=== PATIENT | male | born 1965 | race Caucasian/White ===

== ENCOUNTER → 2018-07-05 08:57 | Outpatient (POV) | payer MEDICARE, SELFPAY | PROVIDERS: Visit Provider Podiatrist | DX: Z00.00 Encounter for general adult medical examination without abnormal findings (principal) ==

== ENCOUNTER 2018-12-18 13:00 | Outpatient (RCR) | payer MEDICARE, MEDICAID, SELFPAY | END 2018-12-18 13:05 | disposition home or self-care (01) | LOC: ST 13:00 | DX: I63.89 Other cerebral infarction (principal); G83.21 Monoplegia of upper limb affecting right dominant side; I69.322 Dysarthria following cerebral infarction | CPT/HCPCS: 92507; 92523 ==

== ENCOUNTER 2018-12-18 14:00 | Outpatient (RCR) | payer MEDICARE, MEDICAID, SELFPAY | END 2018-12-18 14:05 | disposition home or self-care (01) | LOC: PT 14:00 | DX: I63.89 Other cerebral infarction (principal); G83.21 Monoplegia of upper limb affecting right dominant side; I69.322 Dysarthria following cerebral infarction | CPT/HCPCS: 97110; 97112; 97163; 97164 ==

== ENCOUNTER 2018-12-18 15:00 | Outpatient (RCR) | payer MEDICARE, MEDICAID, SELFPAY | END 2018-12-18 15:05 | disposition home or self-care (01) | LOC: OT 15:00 | DX: I63.89 Other cerebral infarction (principal); R47.1 Dysarthria and anarthria | CPT/HCPCS: 97110; 97140; 97164; 97166; 97168 ==

== ENCOUNTER → 2018-12-24 14:26 | Outpatient (CLI) | payer MEDICARE, MEDICAID, SELFPAY ==
[2018-12-24 15:00] VITALS: PULSE 68; PULSE 70
== END ==
PROVIDERS: PCP Emergency Medicine; Visit Provider Nurse Practitioner Family
DX: I10 Essential (primary) hypertension (principal); Z86.73 Personal history of transient ischemic attack (TIA), and cerebral infarction without residual deficits; R06.02 Shortness of breath
CPT/HCPCS: 94060; 94640

== ENCOUNTER → 2018-12-27 07:29 | Outpatient (CLI) | payer MEDICARE, MEDICAID, SELFPAY ==
--- NOTE | 2018-12-27 07:31 | CA_ITS ---
APPROVED REPORT Supervisor Records Change: FREDDY Study Quality: Good Indications: htn Risk Factors Hypertension Hyperlipidemia TIA/CVA History Smoking Renal Artery Doppler Origin (R) 174.0/39.0 cm/sec Proximal (R) 150.0/46.3 cm/sec Mid (R) 94.9/29.6 cm/sec Distal (R) 66.9/12.3 cm/sec Renal Aorta Ratio (R) 2.00 Segmental A. (R) 39.4/12.9 cm/sec RI: 0.67 Segmental A. Sup (R) 35.0/11.3 cm/sec Segmental A. Mid (R) 36.0/12.3 cm/sec Segmental A. Inf (R) 47.1/15.0 cm/sec Origin (L) 87.7/27.8 cm/sec Proximal (L) 113.0/28.0 cm/sec Mid (L) 132.0/38.1 cm/sec Distal (L) 53.9/14.5 cm/sec Renal Aorta Ratio (L) 1.50 Segmental A. (L) 40.3/13.2 cm/sec RI: 0.67 Segmental A. Sup (L) 39.4/10.6 cm/sec Segmental A. Mid (L) 39.4/12.7 cm/sec Segmental A. Inf (L) 42.1/16.4 cm/sec Renal Measurements Kidney Size (R) 10.8x6.8 cm Cortical Thickness (R) 1.6 cm Kidney Size (L) 12.3x7.2 cm Cortical Thickness (L) 1.6 cm Aortic Doppler Velocity Waveform Sup Masood Ao 88.0 cm/sec Findings Normal bilateral renal artery ultrasound. 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 Conclusion Normal bilateral renal artery ultrasound. 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 Electronically signed by : Sherwin Olivia MD 12/28/2018 14:58:32
== END ==
PROVIDERS: PCP Emergency Medicine; Visit Provider Urology
DX: I10 Essential (primary) hypertension (principal); Z86.73 Personal history of transient ischemic attack (TIA), and cerebral infarction without residual deficits
CPT/HCPCS: 93306; 93976

== ENCOUNTER 2019-04-03 14:00 | Outpatient (RCR) | payer MEDICARE, MEDICAID, SELFPAY ==
--- NOTE | 2019-01-09 14:16 | HMH.OTOPEV ---
OT Inpatient Evaluation Rehab OT Outpatient Eval Start: 01/09/19 13:41 Freq: Status: Active Protocol: Document 01/09/19 13:42 RMARSHALL (Rec: 01/09/19 14:16 [id number] Electronically Signed By Gloria Sanchez OT 01/09/19 13:42 Outpatient Therapy Subjective History Subjective History Pt is a 53 year old male who reports to therapy for evaluation to right UE strengthening, endurance, balance, and overall participation in ADL's. Pt had his first CVA in 2012 and made a full recovery. In June, pt had another stroke affecting the right side. and patient report his deficits were resolving and he was getting movement back in the arm. However, pt had another stroke in June 2018 resulting in significant impairments in RUE. After his stroke in June pt went to [facility] for 14 days before returning home. reports patient is able to don his shirt independently, but requires assistance with lower body dressing such as donning /doffing shoes, pants, socks, ect. Pt is not about to complete fine motor task with right hand; pt is left hand dominant. Pt also requires assistance with bathing. He uses a shower chair, but needs help with washing the left side of his body. Pt is independent with feeding himself and brushing his teeth . Right UE appears to have spasticity and significant weakness. Pt uses upper trap compensation when he tries to move the right shoulder. Pt is able to move the elbow WNL, but requires extended time and gravity assistance for extension. Pt is unable to make a full fist and is als
--- NOTE | 2019-02-20 15:14 | HMH.RHREAS ---
Rehab Reassessment Rehab OP Re-assessment Start: 02/20/19 14:59 Freq: Status: Active Protocol: Document 02/20/19 14:59 GISELLE (Rec: 02/20/19 15:13 GISELLE [id number]) Electronically Signed By Gloria Sanchez OT 02/20/19 14:59 Rehab Re-assessment Subjective Subjective I feel like I'm doing better. Objective Objective Notes Pt continues to be seen twice a week in order to address right sided deficits cause from stroke. Each time pt engages in neuro re-education activities, strengthening, balance, and manual therapy strategies. Modalities are provided such as [place] e- stim in order to stimulate the extensors of the wrist for improved motion. Assessment Progress Assessment Progressing as Expected Assessment Notes Pt is demonstrating improvement in right UE function at shoulder and elbow . Wrist has shown minimal improvement. ADL independence has also improved since inititial evaluation Patient goals met Short term goals have been met , except for wrist MMT Goals Not Met All wrist goals and jail goals written on initial evaluation Revised Goals Continue progressing towards all retirement goals written on initial evaluation. Plan Plan Continue with OT plan of care at this time. Frequency of Therapy 2x's a week Duration of therapy 4-6 more weeks Time and Billing Re-Eval Time 15 Re-Eval Billing Units 1 PHYSICIAN CERTIFICATION: I certify the specified therapy services for John Chin are required, authorized, and reviewed every 30 days.
== END 2019-04-03 14:05 | disposition home or self-care (01) ==
LOC: OT 14:00
PROVIDERS: PCP Emergency Medicine; Visit Provider Emergency Medicine
DX: I69.351 Hemiplegia and hemiparesis following cerebral infarction affecting right dominant side (principal); R53.1 Weakness
CPT/HCPCS: 97014; 97110; 97140; 97164; 97166; 97168; G0283

== ENCOUNTER 2019-04-03 14:00 | Outpatient (RCR) | payer MEDICARE, MEDICAID, SELFPAY ==
--- NOTE | 2019-01-09 14:59 | HMH.PTOPEV ---
PT Outpatient Evaluation Rehab PT Outpatient Evaluation Start: 01/09/19 14:39 Freq: Status: Active Protocol: Document 01/09/19 14:39 SOSA (Rec: 01/09/19 14:58 SOSA [id number]) Electronically Signed By Jonah Gerard, PT 01/09/19 14:39 Outpatient Therapy Subjective History Subjective History Pt presents s/p CVA in June, also reports CVA in Jun, and 6 yrs previous. Pt reports most recent CVA effected R side with severe R ankle DF deficit, and R knee weakness (inability to control TKE). Pt reports R knee brace helps prevent R knee HE, and R AFO prevents R foot drop. PMH: severe HTN Chief Complaint Paresthesia,Weakness,Decreased Coordination Symptoms Relieved By Rest/Positioning Symptoms Aggravated By Standing,Physical Activity, Walking,Lifting Prior Functional Limitations Housework,Standing,Walking, Stairs,Balance Current Functional Limitations Lifting,Housework,Standing, Walking,Stairs,Balance Symptom Description Constant and Continuous Hip/Knee Eval MMT left Hip Strength Reason Not Measured WFL Knee Strength Reason Not Measured WFL right Hip Flexion Strength Grade 4 Good Hip Abduction Strength Grade 4- Good- Hip Adduction Strength Grade 4- Good- Hip Extension Strength Grade 4- Good- Knee Extension Strength Grade 4 Good Knee Flexion Strength Grade 3+ Fair+ Ankle/Foot Eval MMT left Ankle Dorsiflexion Strength Grade 5 Normal Ankle Plantarflexion Strength Grade 5 Normal Foot Eversion Strength Grade 5 Normal Foot Inversion Strength Grade 5 Normal right Ankle Dorsiflexion Strength Grade 2- Poor- Balance Eval Timed Up and Go Test 1. Is the Timed Up and Go test result > yes or = to 12 seconds? Tinetti Sitting Balance Sitting Balance Steady, safe Arising from Chair Ability to Arise Able, w/o using arms Attempts to Arise Arises on 1st attempt Standing Balance Immediate Standing Balance Steady w/o support Standing Balance Steady, wide stance Nudged Response Staggers, catches self Standing with Eyes Closed Unsteady Turning Step Pattern Turning 360 Degrees Discontinuous steps Stability Turning 360 Degrees Unsteady, grabs/staggers Sitting Down Sitting Down Safe, steady Gait and Step Initiation of Gait Hesitancy, mult. attempts
--- NOTE | 2019-02-20 14:57 | HMH.RHREAS ---
Rehab Reassessment Rehab OP Re-assessment Start: 02/20/19 14:07 Freq: Status: Active Protocol: Document 02/20/19 14:53 LADYBETSY (Rec: 02/20/19 14:57 SOSA [id number]) Electronically Signed By Jonah Gerard, PT 02/20/19 14:53 Rehab Re-assessment Subjective Subjective PT REPORTS IMPROVED R DF STRENGTH AND STANDING/WALKING ENDURANCE SINCE I EVAL Objective Objective Notes TUSEC W/R KNEE BRACE AND AFO MMT: R DF 3/5, HIP FLX 4-4+/5, KNEE EXT 4+/5, KNEE FLX 4/5 TINETTI: 19 Assessment Progress Assessment Progressing as Expected Assessment Notes PT WITH IMPROVED STRENGTH, TUG SCORE, AND TINETTI SCORE Patient goals met STG'S 6 LTG'S 05/07 Goals Not Met STG'S 05/06, LTG'S 10/05 Plan Plan PT TO CONT W/SKILLED P.T. TO MAKE FURTHER IMPROVEMENTS IN STRENGTH, GAIT ENDURANCE AND BALANCE TO ALLOW FOR OPTIMAL FUNCTION Frequency of Therapy 2-3X/WK Duration of therapy 4-6WKS Time and Billing Re-Eval Time 15 Re-Eval Billing Units 1 PHYSICIAN CERTIFICATION: I certify the specified therapy services for John Chin are required, authorized, and reviewed every 30 days.
--- NOTE | 2019-03-27 15:43 | HMH.RHREAS ---
Rehab Reassessment Rehab OP Re-assessment Start: 02/20/19 14:07 Freq: Status: Active Protocol: Document 03/27/19 15:32 SOSA (Rec: 03/27/19 15:43 SOSA [id number]) Electronically Signed By Jonah Gerard, PT 03/27/19 15:32 Rehab Re-assessment Subjective Subjective PT REPORTS INCREASED WALKING AND STANDING ENDURANCE SINCE LAST REASSESS., AND FEELS 50% BETTER OVERALL SINCE I EVAL Objective Objective Notes TUSEC W/R KNEE BRACE AND AFO MMT: R DF 3/5, HIP FLX 4-4+/5, KNEE EXT 5/5, KNEE FLX 4-4+/5 TINETTI: 23 Assessment Progress Assessment Progressing as Expected Assessment Notes PT W/IMPROVED STRENGTH, TUG SCORE, AND TINETTI Patient goals met STG'S 6/6 LTG'S /7 Goals Not Met LTG'S 2/7 Plan Plan PT TO CONT W/SKILLED P.T. TO MAKE FURTHER IMPROVEMENTS IN STRENGTH, GAIT ENDURANCE AND BALANCE TO ALLOW FOR OPTIMAL FUNCTION Frequency of Therapy 2-3X/WK Duration of therapy 2-4 WKS Time and Billing Re-Eval Time 15 Re-Eval Billing Units 0 PHYSICIAN CERTIFICATION: I certify the specified therapy services for John Chin are required, authorized, and reviewed every 30 days.
== END 2019-04-03 14:05 | disposition home or self-care (01) ==
LOC: PT 14:00
PROVIDERS: PCP Emergency Medicine; Visit Provider Emergency Medicine
DX: Z86.73 Personal history of transient ischemic attack (TIA), and cerebral infarction without residual deficits (principal); R53.1 Weakness
CPT/HCPCS: 97014; 97110; 97112; 97140; 97163; 97164; G0283

== ENCOUNTER → 2020-06-03 18:46 | Outpatient (CLI) | payer MEDICARE, MEDICAID, SELFPAY ==
[2020-06-03 19:26] LABS: Basophils % 0.4 % (0.1-2.0); Eosinophils # 0.2 K/mm3 (0.0-0.4); Eosinophils % 2.4 % (0.1-12.0); Hematocrit 48.1 % (42.0-52.0); Hemoglobin 15.7 g/dL (14.1-18.0); Lymphocytes # 2.4 K/mm3 (0.7-4.5); Lymphocytes % 28.2 % (10-50); Mean Corpuscular HGB Conc 32.7 g/dL (31.8-35.4); Mean Corpuscular Hemoglobin 30.2 pg (27.0-31.2); Mean Corpuscular Volume 92.5 fl (80-94); Mean Platelet Volume 8.8 fl (7.4-10.4); Monocytes # 0.4 K/mm3 (0.1-1.0); Monocytes % 5.3 % (1.7-9.3); Neutrophils # 5.3 K/mm3 (1.8-7.8); Neutrophils % 63.7 % (37.0-80.0); Platelet Count 239 K/mm3 (142-424); Red Blood Count 5.21 M/mm3 (4.60-6.20); Red Cell Distribution Width 13.4 % (11.5-17.5); White Blood Count 8.4 K/mm3 (4.8-10.8)
[2020-06-03 19:41] LABS: Alanine Aminotransferase 63 U/L (12-78); Albumin Level 4.3 g/dl (3.5-5.0); Albumin/Globulin Ratio 1.3 (1.1-1.8); Alkaline Phosphatase 114 U/L (38-126); Aspartate Amino Transferase 52 U/L (17-59); Bilirubin,Total 0.3 mg/dl (0.2-1.3); Blood Urea Nitrogen 14 mg/dl (9-20); Calcium 9.8 mg/dl (8.4-10.2); Carbon Dioxide 25 mmol/L (22.0-30.0); Chloride 107 mmol/L (98-107); Chol/HDL Ratio 6.8 (1-3.5); Cholesterol 157 mg/dl (140-200); Estimated Glomerular Filt Rate 63 ml/min (>60); GFR (African American) 76 ML/MIN (>60); Globulin 3.4 g/dL (1.3-3.2); Glucose 129 mg/dl (74-100); HDL Cholesterol 23 mg/dl (40-60); Sodium 137 mmol/L (136-145); Total Protein,Serum 7.7 g/dl (6.3-8.2); Triglycerides 342 mg/dl (30-150); VLDL Cholesterol 68 mg/dL (0-40)
[2020-06-03 19:53] LABS: Direct LDL Cholesterol 83.43 mg/dL (100-129)
[2020-06-03 19:58] LABS: 25-OH Vitamin D, Total 19.1 ng/mL (30-100)
[2020-06-03 20:13] LABS: Thyroid Stimulating Hormone 0.65 uIU/mL (0.465-4.68)
[2020-06-05 17:56] LABS: PSA, Free 0.16 ng/mL; Prostate Specific Ag 0.4 ng/mL (0.0-4.0)
== END ==
PROVIDERS: Visit Provider Emergency Medicine
DX: R53.83 Other fatigue (principal); Z86.73 Personal history of transient ischemic attack (TIA), and cerebral infarction without residual deficits; F41.9 Anxiety disorder, unspecified; I10 Essential (primary) hypertension; E55.9 Vitamin D deficiency, unspecified
CPT/HCPCS: 80053; 80061; 82306; 84153; 84154; 84436; 84443; 85025

== ENCOUNTER 2020-12-16 20:29 | Emergency (ER) | payer MEDICARE, MEDICAID, SELFPAY ==
--- NOTE | 2020-12-16 20:21 | ECG_ITS ---
APPROVED REPORT Exam: Resting ECG HR:86 bpm ECG Measurements Heart Rate 86 AXES WA 164 P 41 QRSd 90 QRS 58 QT 392 T 61 QTc 469 Conclusion Normal sinus rhythm Normal ECG Electronically signed by : Nain Rowland MD 12/18/2020 12:06:05
[2020-12-16 20:22] VITALS: BP 132/99; PULSE 87; RESP 20; TEMP 36.7; O2SAT 90; BMI 25.8
[2020-12-16 20:30] VITALS: BP 132/99; PULSE 85; O2SAT 92
--- NOTE | 2020-12-16 20:33 | CT_ITS ---
PROCEDURE INFORMATION: Exam: CT Head Without Contrast Exam date and time: 12/16/2020 8:33 PM Age: 55 years old Clinical indication: Syncope and collapse; Patient HX: HX of stroke TECHNIQUE: Imaging protocol: Computed tomography of the head without contrast. 3D rendering (Not supervised by radiologist): MIP and/or 3D reconstructed images were created by the technologist. Radiation optimization: All CT scans at this facility use at least one of these dose optimization techniques: automated exposure control; mA and/or kV adjustment per patient size (includes targeted exams where dose is matched to clinical indication); or iterative reconstruction. COMPARISON: HEADWO CT head/brain wo con 07/18/2018 8:20 AM FINDINGS: Brain: Left frontal, occipital, temporal, and biparietal encephalomalacia is stable. Chronic cerebellar and lacunar infarctions within bilateral basal ganglia. White matter changes compatible with small vessel occlusive change. No mass. No hemorrhage. Cerebral ventricles: No ventriculomegaly. Paranasal sinuses: No fluid levels. Mastoid air cells: Visualized mastoid air cells are well aerated. Bones/joints: No acute fracture. Soft tissues: No significant soft tissue abnormality. IMPRESSION: Chronic changes without acute process.
--- NOTE | 2020-12-16 20:33 | XR_ITS ---
PROCEDURE INFORMATION: Exam: XR Chest Exam date and time: 12/16/2020 8:33 PM Age: 55 years old Clinical indication: Other: Hemoptysis; Additional info: Hemopytsis TECHNIQUE: Imaging protocol: XR of the chest. Views: 1 view. COMPARISON: CR CXR1VP XR chest portable 07/18/2018 9:02 AM FINDINGS: Lungs: Low lung volumes with interstitial coarsening but no confluent consolidation. Pleural spaces: No pneumothorax. Heart/Mediastinum: Soft tissue fullness within the ramon and mediastinum which is similar to prior examination. Bones/joints: No acute abnormality. IMPRESSION: 1. Soft tissue fullness within the ramon and mediastinum which is similar to prior examination. If this has not been previously evaluated, CT may be warranted for further evaluation. 2. Low lung volumes with interstitial coarsening but no confluent consolidation.
--- NOTE | 2020-12-16 20:33 | CT_ITS ---
PROCEDURE INFORMATION: Exam: CTA Chest With Contrast Exam date and time: 12/16/2020 8:33 PM Age: 55 years old Clinical indication: Other: Syncope TECHNIQUE: Imaging protocol: Computed tomographic angiography of the chest with contrast. 3D rendering (Not supervised by radiologist): MIP and/or 3D reconstructed images were created by the technologist. Radiation optimization: All CT scans at this facility use at least one of these dose optimization techniques: automated exposure control; mA and/or kV adjustment per patient size (includes targeted exams where dose is matched to clinical indication); or iterative reconstruction. Contrast material: ISO 370; Contrast volume: 70 ml; Contrast route: INTRAVENOUS (IV); COMPARISON: CR XR CHEST PORTABLE 12/16/2020 9:01 PM FINDINGS: Pulmonary arteries: The main and proximal lobar pulmonary arteries are within normal limits. Distal lobar and segmental branches are not well evaluated secondary to motion. Aorta: Calcified atherosclerosis. No aneurysm. Lungs: Emphysema with dependent ground-glass opacities more prominent on right. Pleural spaces: No pneumothorax. No pleural effusion. Heart: No cardiomegaly. No pericardial effusion. Lymph nodes: No enlarged lymph nodes. Spleen: There are multiple splenic calcifications likely on the basis of prior granulomatous exposure. Bones/joints: No acute fracture. Soft tissues: No significant swelling. Other findings: Examination is limited by motion. IMPRESSION: Emphysema with dependent ground-glass opacities more prominent on right which are not well evaluated secondary to motion and may be hypoventilatory however pneumonitis or asymmetric edema should be clinically excluded.
--- NOTE | 2020-12-16 20:35 | PC.NURSE ---
EMS reports pt was 89% on RA on scene. 2LNC was applied by EMS at that time.
[2020-12-16 20:47] LABS: Coronavirus 19, PCR Not Detected (NotDetected); Influenza A, PCR Not Detected (NotDetected); Influenza B, PCR Not Detected (NotDetected)
[2020-12-16 20:52] LABS: Basophils # 0.1 K/mm3 (0-0.2); Basophils % 0.8 % (0.1-2.0); Eosinophils # 0.1 K/mm3 (0.0-0.4); Eosinophils % 1.3 % (0.1-12.0); Hematocrit 49.8 % (42.0-52.0); Hemoglobin 16.7 g/dL (14.1-18.0); Lymphocytes # 3.1 K/mm3 (0.7-4.5); Lymphocytes % 30.7 % (10-50); Mean Corpuscular HGB Conc 33.5 g/dL (31.8-35.4); Mean Corpuscular Hemoglobin 29.8 pg (27.0-31.2); Mean Corpuscular Volume 88.8 fl (80-94); Mean Platelet Volume 9.2 fl (7.4-10.4); Monocytes # 0.4 K/mm3 (0.1-1.0); Monocytes % 3.6 % (1.7-9.3); Neutrophils # 6.4 K/mm3 (1.8-7.8); Neutrophils % 63.6 % (37.0-80.0); Platelet Count 305 K/mm3 (142-424); Red Blood Count 5.61 M/mm3 (4.60-6.20); Red Cell Distribution Width 13.6 % (11.5-17.5)
[2020-12-16 20:55] LABS: Alanine Aminotransferase 73 U/L (12-78); Albumin Level 4.1 g/dl (3.5-5.0); Alkaline Phosphatase 114 U/L (38-126); Anion Gap 15.4 mEq/L (5-15); Aspartate Amino Transferase 53 U/L (17-59); Bilirubin,Direct 0.5 mg/dl (0.0-0.4); Bilirubin,Total 0.5 mg/dl (0.2-1.3); Blood Urea Nitrogen 14 mg/dl (9-20); Calcium 9.1 mg/dl (8.4-10.2); Carbon Dioxide 25 mmol/L (22.0-30.0); Chloride 105 mmol/L (98-107); Creatinine Clearance Estimated 71 mL/min (50-200); Estimated Glomerular Filt Rate 57 ml/min (>60); GFR (African American) 69 ML/MIN (>60); Glucose 116 mg/dl (74-100); Potassium 3.4 mmoL/L (3.5-5.1); Sodium 142 mmol/L (136-145); Total Protein,Serum 7.7 g/dl (6.3-8.2)
[2020-12-16 20:59] LABS: Ethyl Alcohol < 10 mg/dl (0-10)
[2020-12-16 21:00] VITALS: BP 128/84; PULSE 88; RESP 23; O2SAT 93
[2020-12-16 21:01] LABS: C-Reactive Protein 82.9 mg/L (0-4)
--- NOTE | 2020-12-16 21:02 | HMH.EDSYNC ---
ED Disposition Clinical Impression: History of stroke Episode of syncope Qualifiers: Syncope type: unspecified Qualified Code(s): R55 - Syncope and collapse Disposition: Home, Self-Care Condition on Discharge: Good Instructions: DI for Syncope in Adults (Fainting) Additional Instructions: see pcp for follow up Referrals: Efra Ryan MD [Primary Care Provider] - - Critical Care Critical Care Time: No Attestation: On 12/16/20, the high probability of a clinically significant, sudden or life threatening deterioration of the following system(s) required my full and direct attention, intervention and personal management. The time I documented below is in addition to time spent performing reported procedures but includes the following listed in this critical care notation. Medical Decision Making - Medical Records Medical records reviewed: Yes: I reviewed the patient's medical records. - Jj Inquiry Pt receiving controlled substance: No Vital Signs: 12/16/20 20:22 12/16/20 20:30 12/16/20 21:00 Temperature 98.0 F Temperature Source Oral Pulse Rate 85 88 Pulse Rate [Left Radial] 87 Respiratory Rate 20 23 Blood Pressure 132/99 H 128/84 Blood Pressure [Right Arm] 132/99 H Blood Pressure Mean [Right Arm] 110 02 Sat by Pulse Oximetry 90 L 92 L 93 L Oxygen Delivery Method Room Air Room Air Room Air - Lab Data Lab results reviewed: Yes: I reviewed the patient's lab results. Lab Results 12/16/20 20:23: WBC 10.0, RBC 5.61, Hgb 16.7, Hct 49.8, MCV 88.8, MCH 29.8, MCHC 33.5, RDW 13.6, Plt Count 305, MPV 9.2, Neut % (Auto) 63.6, Lymph % (Auto) 30.7, Robertson % (Auto) 3.6, Eos % (Auto) 1.3, Baso % (Auto) 0.8, Neut # (Auto) 6.4, Lymph # (Auto) 3.1, Robertson # (Auto) 0.4, Eos # (Auto) 0.1, Baso # (Auto) 0.1, ESR 23 H 12/16/20 20:23: Sodium 142, Potassium 3.4 L, Chloride 105, Carbon Dioxide 25, Anion Gap 15.4 H, BUN 14, Creatinine 1.30 H, Estimated Creat Clear 71, Estimated GFR 57 L, Est GFR ( Amer) 69, Glucose 116 H, Calcium 9.1, Total Bilirubin 0.5, Direct Bilirubin 0.5 H, Conjugated Bilirubin 0.0, Indirect Bilirubin 0.0, Unconjugated Bilirubin 0.0, AST 53, ALT 73, Alkaline Phosphatase 114, Troponin I < 0.01, C-Reactive Protein 82.9 H, Total Protein 7.7, Albumin 4.1, Procalcitonin 0.124 12/16/20 20:23: Plasma/Serum Alcohol < 10 12/16/20 20:27: SARS-CoV-2 (PCR) Not detected, Influenza A Untype (PCR) Not detected, Influenza Type B (PCR) Not detected Result diagrams: 12/16/20 20:23 12/16/20 20:23 Orders (Tests/Meds): ED MEDICATIONS Discontinued Medications Generic Name Dose Route Start Last Admin Trade Name Freq PRN Reason Stop Dose Admin Iopamidol 70 ml 12/16/20 21:40 12/16/20 21:41 Iopamidol-370 (76%);100ml Bottle IV 12/16/20 21:41 70 ml ONCE ONE Administration Sodium Chloride 50 ml 12/16/20 21:40 12/16/20 21:41 0.9 % Sodium Chloride 50 Ml Vial IV 12/16/20 21:41 50 ml ONCE ONE Administration Sodium Chloride 10 ml 12/16/20 21:40 12/16/20 21:41 Sodium Chloride 0.9% 10ml Syr (Rad Only) IV 12/16/20 21:41 10 ml ONCE ONE Administration ORDERS Category Date Time Status Drug Screen,Urine Stat Lab 12/16/20 20:33 Ordered Troponin I Q3H Lab 12/16/20 23:45 Ordered Troponin I Q3H Lab 12/17/20 02:45 Ordered Urinalysis and Microscopic Stat Lab 12/16/20 20:33 Ordered - Radiology Data #1 Image(s): Chest Image Reviewed: Yes I reviewed the patient's radiology image, Yes I have reviewed radiologist's interpretation Preliminary Findings: Abnormal - CT Data CT Scan: Head, Chest Time Received: 23:[address] Reviewed: Yes: I have viewed the radiologist's interpretation Preliminary Findings: Abnormal (see report ) - ECG Data Tracing #1 Normal Sinus Rhythm: Yes Ischemic changes: non-specific ST-T wave changes - Reevaluation(s) Time: 23:04 Reevaluation #1: improved Medical Decision Narrative: syncope with no clear etiology pt d
[2020-12-16 21:14] LABS: Procalcitonin 0.124 ng/mL (0.0-2.0); Troponin I < 0.01 ng/ml (0.00-0.034)
[2020-12-16 21:19] LABS: Erythrocyte Sedimentation Rate 23 mm/hr (0-20)
[2020-12-16 22:00] VITALS: BP 151/90; PULSE 85; RESP 23; O2SAT 92
[2020-12-16 23:13] VITALS: BP 142/93; PULSE 85; RESP 23; TEMP 36.9; O2SAT 92
== END 2020-12-16 23:14 | disposition home or self-care (01) ==
PROVIDERS: Emergency Provider Emergency Medicine; PCP Emergency Medicine
DX: R55 Syncope and collapse (principal); Z86.73 Personal history of transient ischemic attack (TIA), and cerebral infarction without residual deficits; I10 Essential (primary) hypertension; K21.9 Gastro-esophageal reflux disease without esophagitis; F41.9 Anxiety disorder, unspecified; F17.210 Nicotine dependence, cigarettes, uncomplicated; Z79.899 Other long term (current) drug therapy; Z20.822 Contact with and (suspected) exposure to COVID-19
CPT/HCPCS: 70450; 71045; 71275; 80048; 80076; 84145; 84484; 85025; 85651; 86140; 93005; 99284; Q9967; U0003

== ENCOUNTER → 2021-08-30 07:00 | Outpatient (CLI) | payer MEDICARE, MEDICAID, SELFPAY ==
--- NOTE | 2021-08-30 07:01 | NM_ITS ---
APPROVED REPORT Exam: Nuclear Stress Test Indication: SOB, HTN, Tobacco use Patient Location: Outpatient Stress Tech: Kenisha Pastor [place] Tech:Elsa Reynolds, ARRT, RT (R)(N) Ht: 5 ft 10 in Wt: 193 lbs HR: 64 bpm BP: 135/73 mmHg BSA: 2.06 m2 BMI: 27.6 History: SOB, HTN, Tobacco use Procedure: Patient received a 0.4 mg of intravenous Lexiscan, resting heart rate 64 bpm, resting blood pressure 135/73 mmHg, with Lexiscan maximum heart rate achived was 87 bpm which is Less than 85 % of the maximum predicted heart rate and blood pressure was 140/90 mmHg. With Lexiscan, patient denied any complaint of chest pain. Electrocardiogram Resting electrocardiogram shows sinus rhythm, with Lexiscan there is less than 1.[address] segment depression noted from the baseline EKG. The EKG portion of the Lexiscan is nondiagnostic. Cardiac Stress and Resting SPECT Images: Cardiac Stress and Resting SPECT images were obtained using technetium 99m Myoview 31.9 mCi stress and 10.31 mCi at rest. Patient unable to due prone images due to history of stroke. Gated SPECT analysis of segmental wall motion and calculation of the ejection fraction also done. Cardiac stress and rest SPECT may show partial reversible defect involving the anterior apical and anteroseptal wall consistent with mixed ischemia and scar, computer derived ejection fraction is 61% which is overestimation by gated SPECT, visually estimated ejection fraction approximately 45% with moderate anterior apical and anteroseptal wall hypokinesis. There is transient ischemic dilatation of the left ventricle seen. Conclusion: 1. EKG portion of the Lexiscan is nondiagnostic. 2. Scintigraphic evidence of mixed ischemia and scar involving the anterior apical and anteroseptal wall, computer derived ejection fraction is 61% which is overestimation by gated SPECT, visually estimated ejection fraction is approximately 45% with segmental wall motion abnormality described above, there is transient ischemic dilatation of the left ventricle seen. 3. Abnormal Lexiscan Myoview study. Electronically signed by : Tarik Cardona MD 08/30/2021 15:30:24
--- NOTE | 2021-08-30 09:18 | HMH.ITSHM ---
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 []TRAZODONE OMEPRAZOLE LISINOPRIL LINACLOTIDE LEVETIRACETAM ASA FLUTICASONE VITAMIN D2 CLONAZEPAM CITALOPRAM VITAMIN D3 BISOPROLOL ATORVASTATIN AMLODIPINE ALBUTEROL
--- NOTE | 2021-08-30 09:35 | CA_ITS ---
APPROVED REPORT Exam: Pharmacologic Technologist: Kenisha Escobar, Ht: 5 ft 9 in Wt: 92 lbs BSA: 1.48 m2 HR: 64 bpm BP: 135/73 mmHg Medical History Medications: Amlodipine,,,,, Omeprazole,,,,, Aspirin,,,,, Trazadone,,,,, Atorvastatin,,,,, Citalopram,,,,, Albuterol,,,,, KloNOPIN,,,,, BisOPROLOL Fumarate,,,,, KEPPRA,,,,, LiNZESS,,,,, INCrUSE,,,,, Stress Test Details Test: LEXISCAN HR Resting HR: 64 bpm Max Heart Rate (APMHR): 163.928409 bpm Max HR Achieved: 87 bpm Target HR (85% APMHR): 138.873157 bpm % of APMHR: 53.37 Recovery HR: 80 bpm BP Resting BP: 135/73 mmHg Max BP: 140/90 mmHg Recovery BP: 140.0/90.0 mmHg ECG Resting ECG: NSR with NSSTW abnormalities Inferiorly Clinical Reason for Termination: Completed Protocol Exercise duration: 04:01 min Highest Stage Achieved: Stress ECG Conclusion Symptoms: None Arrhythmias/Ectopy: None ST-T Changes: <1.5mm ST Segment changes Conclusion: Non-Diagnostic Test Summary REST . . . . . . . Resting REST . . . . . . . Resting REST 04:22 . . 64 . 135/ 73 . . Stage 1 01:00 . . 74 . . . . Stage 2 01:00 . . 84 . 118/ 78 . . Stage 3 01:00 . . 85 . 126/ 87 . . Stage 4 01:00 . . 80 . 136/ 94 . . Stage 4 01:01 . . 81 . 136/ 94 . Stop exercise at 04:01 RECOVERY 01:00 . . 80 . . . . RECOVERY 02:00 . . 82 . . . . RECOVERY 02:17 . . 80 . 140/ 90 . . Electronically signed by : Tarik Cardona MD 08/30/2021 15:26:24
== END ==
PROVIDERS: PCP Emergency Medicine; Visit Provider Physician Assistant
DX: F17.200 Nicotine dependence, unspecified, uncomplicated; I10 Essential (primary) hypertension; I63.9 Cerebral infarction, unspecified; R06.00 Dyspnea, unspecified
CPT/HCPCS: 78452; 93017; A9502; J2785

== ENCOUNTER → 2021-09-01 07:52 | Outpatient (CLI) | payer MEDICARE, MEDICAID, SELFPAY ==
--- NOTE | 2021-09-01 07:53 | MR_ITS ---
FINAL REPORT CLINICAL HISTORY: CVA, HX STROKE 2019, NEW ONSET OF SEIZURE ACTIVITY IN JULY 2021. FINDINGS: Multiplanar MR imaging of the brain was performed without contrast. There is age-appropriate atrophy. There are foci of increased T2 signal in the cerebral white matter that have a nonspecific appearance but likely represent severe chronic ischemic/gliotic changes. There is left frontal and left parietal encephalomalacia consistent with prior infarcts. There is no evidence of intracranial hemorrhage or mass. No abnormal ventricular dilatation is identified. No abnormal extra-axial fluid collection is seen. No abnormality is seen on the diffusion weighted images. The posterior fossa and brainstem are unremarkable. Normal major vessel vascular flow voids are seen. IMPRESSION: Age-appropriate atrophy and severe chronic ischemic/gliotic changes. No acute intracranial abnormality. Reviewed, Interpreted and Dictated by Gage Rico III, MD Transcribed by Juventino Bowers Authenticated by Gage Rico III, MD on 09/01/2021 10:41:[address] [facility]
--- NOTE | 2021-09-01 09:17 | CA_ITS ---
FINAL REPORT TECHNIQUE: Color Doppler, duplex Doppler and sylvester scale sonography of the bilateral neck arterial vasculature was performed. Velocities were measured in the carotid arteries. Stenosis evaluation based on the validated velocity criteria. CLINICAL HISTORY: CVA, multiple CVA's, HTN, GERD, TIA, syncope FINDINGS: DUPLEX SCAN OF CAROTID ARTERIES SIXTO The peak systolic velocity of the right common carotid artery is 57 cm/s. The peak systolic velocity of the right internal carotid artery is 55 cm/s and end diastolic velocity 20 cm/s. The ICA/CCA ratio is 0.96. A mild amount of plaque is present. The right external carotid artery is patent. The right vertebral artery is patent with antegrade flow. The peak systolic velocity of the left common carotid artery is 70 cm/s. The peak systolic velocity of the left internal carotid artery is 78 cm/s and end diastolic velocity 34 cm/s. The ICA/CCA ratio is 1.12. A mild amount of plaque is present. The left external carotid artery is patent.The left vertebral artery is patent with antegrade flow. IMPRESSION: Less than 50% bilateral carotid stenosis. Bilateral patent vertebral arteries with antegrade flow. Reviewed, Interpreted and Dictated by Gage Rico III, MD Transcribed by Etta Ontiveros Authenticated by Gage Rico III, MD on 09/01/2021 01:16:14 PM [facility]
--- NOTE | 2021-09-01 09:17 | CA_ITS ---
APPROVED REPORT EXAM: Comprehensive 2D, Doppler, and color-flow Echocardiogram Electric Cell Tender: Maty Diaz CRT Ht: 5 ft 9 in Wt: 192lbs BSA: 2.03 BP: 116/79 mmHg Indications: COPD, Shortness of Breath, Obesity, Fatigue, Peripheral Edema, Hyperlipidemia, Hypertension/HDD, multiple CVA's, continues to smoke. Difficult disgruntlled, uncooperative pt. Bubble study Echo Enhancing Agent Indication: Rule out Shunt Agent(s) / Amount(s) Used: Agitated Saline 15 cc Comments: b/s appears negative 2D Dimensions LVOT 2.05 cm (M/F) 1.5-2.5 LA Volume 30.50 mL LA Volume Index 15.00 mL/m2 (M/F) 16-34 M-Mode Dimensions RVDd 2.71 cm (0.9-2.6) LA Diam 2.79 cm (1.9-4.0) LVDd 4.21 cm (3.5-5.7) Ao Diam 4.33 cm (2.0-3.7) LVDs 3.60 cm (3.5-5.7) IVSd 1.96 cm (0.6-1.1) PWd 1.00 cm (0.6-1.1) EF (Teich) 31.10% FS 14.50% EDV (Teich) 79.00 mL ESV (Teich) 54.40 mL LV Diastology E Decel Time 220.00 (160-240 msec) E/A Ratio 0.57 Aortic Valve AI PHT 580.00 ms AO Peak GR. 5.30 mmHg Mitral Valve MV E Max Victo Rm. 45.00 (40-130 cm/s) MV A Velocity 79.00 (40-130 cm/s) E/A Ratio 0.57 MV Decel. Time 220.00 (160-240 ms) MV PHT 64.00 ms Pulmonary Valve PV Peak Velocity 122.00 (50-150 cm/s) Tricuspid Valve TR P. Velocity 199.00 cm/s RAP Estimate 10.00 mmHg RVSP 25.80 mmHg Left Ventricle Left atrium is mildly enlarged, left ventricle is normal size, mild concentric left ventricular hypertrophy, estimated ejection fraction 55% with no regional wall motion abnormality, Doppler evidence of impaired LV relaxation seen. Right Ventricle Right atrium and right ventricle are mildly enlarged with normal contractility. Atria Intra-atrial septum is intact, there is no flow across the interatrial septum, agitated saline contrast study fails to identify intracardiac shunt. Aortic Valve Aortic valve is thickened and fibrosed there is no aortic stenosis, there is trace aortic insufficiency. Mitral Valve Mitral valve grossly normal, there is trace mitral regurgitation. Tricuspid Valve Tricuspid grossly normal, there is trace tricuspid regurgitation, tricuspid regurgitation jet velocity is inadequate for calculation of the right ventricular systolic pressure. Pulmonic Valve Pulmonic valve is poorly visualized. Great Vessels Aortic root is normal size. Inferior vena cava is poorly visualized. Pericardium No significant pericardial effusion noted. Conclusion 1. Mild biatrial enlargement, normal left ventricular size, mild concentric left ventricular hypertrophy, estimated ejection fraction 55% with no regional wall motion abnormality, Doppler evidence of impaired LV relaxation seen. 2. Mildly enlarged right ventricle with normal contractility. 3. Intra-atrial septum is intact, there is no intracardiac shunt. 4. Trace mitral and tricuspid regurgitation. 5. No significant pericardial effusion noted. 6. Inferior vena cava is poorly visualized. Electronically signed by : Tarik Cardona MD 09/01/2021 21:34:38
== END ==
PROVIDERS: PCP Emergency Medicine; Visit Provider Specialist
DX: G47.30 Sleep apnea, unspecified; I63.313 Cerebral infarction due to thrombosis of bilateral middle cerebral arteries; R55 Syncope and collapse
CPT/HCPCS: 70551; 93306; 93880

== ENCOUNTER → 2021-09-16 14:28 | Outpatient (CLI) | payer MEDICARE, MEDICAID, SELFPAY ==
[2021-09-16 15:58] LABS: Basophils # 0.1 K/mm3 (0-0.2); Basophils % 1.1 % (0.1-2.0); Eosinophils # 0.2 K/mm3 (0.0-0.4); Eosinophils % 2.6 % (0.1-12.0); Hematocrit 49.9 % (42.0-52.0); Lymphocytes # 2.2 K/mm3 (0.7-4.5); Lymphocytes % 30.9 % (10-50); Mean Corpuscular Hemoglobin 31.2 pg (27.0-31.2); Mean Corpuscular Volume 91.6 fl (80-94); Mean Platelet Volume 9.1 fl (7.4-10.4); Monocytes # 0.4 K/mm3 (0.1-1.0); Neutrophils # 4.3 K/mm3 (1.8-7.8); Neutrophils % 60.5 % (37.0-80.0); Platelet Count 234 K/mm3 (142-424); Red Blood Count 5.45 M/mm3 (4.60-6.20); Red Cell Distribution Width 13.6 % (11.5-17.5); White Blood Count 7.1 K/mm3 (4.8-10.8)
[2021-09-16 16:42] LABS: Anion Gap 12.5 mEq/L (5-15); Blood Urea Nitrogen 14 mg/dl (9-20); Calcium 9.7 mg/dl (8.4-10.2); Carbon Dioxide 27 mmol/L (22.0-30.0); Chloride 101 mmol/L (98-107); Estimated Glomerular Filt Rate 52 ml/min (>60); GFR (African American) 63 ML/MIN (>60); Glucose 109 mg/dl (74-100); Potassium 3.5 mmoL/L (3.5-5.1); Sodium 137 mmol/L (136-145)
== END ==
PROVIDERS: PCP Specialist; Visit Provider Internal Medicine
DX: R94.30 Abnormal result of cardiovascular function study, unspecified (principal); Z01.812 Encounter for preprocedural laboratory examination; Z11.52 Encounter for screening for COVID-19
CPT/HCPCS: 36415; 80048; 85025; C9803; U0003; U0005

== ENCOUNTER 2021-09-17 08:38 | Day surgery (SDC) | payer MEDICARE, MEDICAID, SELFPAY ==
[2021-09-17] VITALS (12 sets, daily range): BP systolic 85–135; BP diastolic 52–100; PULSE 62–70; RESP 18; TEMP 36.9; O2SAT 90–94; BMI 22.1
--- NOTE | 2021-09-17 | IR_ITS ---
APPROVED REPORT Patient Location: Outpatient Stage [facility] Painter Apprentice: AKIN Lai RT (R) PROCEDURES Left heart catheterization Left ventriculogram Selective coronary angiogram INDICATION High risk abnormal Myoview, Angina pectoris, Risk factors for coronary artery disease Informed consent was obtained prior to the procedure. COMPLICATIONS NONE Estimated Blood Loss: LESS THAN 10 ML TECHNIQUE One percent lidocaine used to anesthetize the right anterior aspect of the wrist. The right radial artery was accessed via the Seldinger technique. A 6 Jordanian sheath was placed in the right radial artery. 2.5 mg of verapamil, 800 mcg of nitroglycerin, 1mg Lidocaine and 5000 U Heparin were given through the arterial sheath. The papa catheter was also used to perform left heart catheterization, left ventriculogram and selective coronary angiogram. At the end of the procedure the sheath was removed good hemostasis was achieved using Traclet band, patient was transferred to the postop holding area in stable condition. ANGIOGRAPHIC RESULTS The left main artery Normal The left anterior descending artery Has proximal 10% luminal irregularities with a mid vessel 30% stenosis accompanying a small relatively short less than 15 mm myocardial bridge which compresses 40% during systole The circumflex artery Nondominant yet still large and normal The right coronary artery Dominant and has proximal tubular 50% stenosis followed by an additional tubular 50% stenosis. The stenoses are long extremely tortuous 120 degree bends. The FLANNERY ventriculogram reveals Preserved at 55 to 60% The left ventricular end-diastolic pressure 25 mmHg IMPRESSION Coronary artery disease as described above Initially the LAD had BENNETT II flow which improved to BENNETT-3 flow with subsequent contrast injections BENNETT II flow down the dominant right coronary artery Both the LAD and the right coronary artery flow is consistent with a combination of both endothelial dysfunction and diastolic dysfunction as evidenced by the elevated LVEDP Preserved ejection fraction PLAN 1. Avoidance of tobacco products 2. Treatment of endothelial dysfunction 3. For the time being I recommend medical management. The abnormal Myoview was in the anterior distribution not the inferior wall. Although the right coronary artery is borderline significant and could possibly benefit from stenting based on the angiographic stenosis I am in much greater favor of medical management. Stenting the proximal segment along the tortuous bends would likely require 2 or 3 38 mm stents to stent from the proximal portion throughout the mid and into the distal portion in order to completely straighten out the artery. Because these stenoses would require such complex and numerous stents I would like to try medical management first. Furthermore the abnormal Myoview distribution was in the LAD not the right coronary artery. Secondly patient has endothelial dysfunction which is likely contributing to his angina pectoris. Thirdly patient also has diastolic dysfunction which is contributing to the slow flow and the angina pectoris. 4. LDL less than 55 5. Treatment of both diastolic and endothelial dysfunction. If patient continues to experience angina pectoris after being adequately treated I would then consider bringing him back to the [facility] should his angina be recalcitrant to medical management and then consider stenting the right coronary artery. Electronically signed by : Bruce Boothe MD 09/17/2021 10:31:52
== END 2021-09-17 13:14 | disposition home or self-care (01) ==
LOC: CATHLAB 08:40
PROVIDERS: PCP Emergency Medicine; Visit Provider Internal Medicine
DX: I25.118 Atherosclerotic heart disease of native coronary artery with other forms of angina pectoris (principal); Z79.899 Other long term (current) drug therapy; I10 Essential (primary) hypertension; F17.210 Nicotine dependence, cigarettes, uncomplicated; I65.23 Occlusion and stenosis of bilateral carotid arteries; K21.9 Gastro-esophageal reflux disease without esophagitis; E78.5 Hyperlipidemia, unspecified; R94.39 Abnormal result of other cardiovascular function study
CPT/HCPCS: 93458; 99152; C1725; C1769; J1644; Q9966

== ENCOUNTER → 2021-10-13 20:09 | Outpatient (CLI) | payer MEDICARE, MEDICAID, SELFPAY | PROVIDERS: PCP Emergency Medicine; Visit Provider Specialist | DX: G47.33 Obstructive sleep apnea (adult) (pediatric) (principal); R09.02 Hypoxemia; I63.9 Cerebral infarction, unspecified | CPT/HCPCS: 95810 ==

== ENCOUNTER → 2021-10-28 11:44 | Outpatient (CLI) | payer MEDICARE, MEDICAID, SELFPAY ==
[2021-10-28 12:26] LABS: Basophils % 0.4 % (0.1-2.0); Eosinophils # 0.1 K/mm3 (0.0-0.4); Eosinophils % 2.1 % (0.1-12.0); Hematocrit 45.5 % (42.0-52.0); Lymphocytes # 1.6 K/mm3 (0.7-4.5); Lymphocytes % 24.1 % (10-50); Mean Corpuscular HGB Conc 35.2 g/dL (31.8-35.4); Mean Corpuscular Hemoglobin 30.2 pg (27.0-31.2); Mean Platelet Volume 8.3 fl (7.4-10.4); Monocytes # 0.3 K/mm3 (0.1-1.0); Monocytes % 5.3 % (1.7-9.3); Neutrophils # 4.4 K/mm3 (1.8-7.8); Neutrophils % 68.2 % (37.0-80.0); Platelet Count 222 K/mm3 (142-424); Red Blood Count 5.29 M/mm3 (4.60-6.20); Red Cell Distribution Width 12.5 % (11.5-17.5); White Blood Count 6.5 K/mm3 (4.8-10.8)
[2021-10-28 13:07] LABS: Anion Gap 12.5 mEq/L (5-15); Blood Urea Nitrogen 18 mg/dl (9-20); Calcium 9.7 mg/dl (8.4-10.2); Carbon Dioxide 29 mmol/L (22.0-30.0); Chloride 102 mmol/L (98-107); Estimated Glomerular Filt Rate 42 ml/min (>60); GFR (African American) 51 ML/MIN (>60); Glucose 110 mg/dl (74-100); Magnesium 1.4 mg/dl (1.6-2.3); Potassium 3.5 mmoL/L (3.5-5.1); Sodium 140 mmol/L (136-145)
== END ==
PROVIDERS: Nurse Practitioner; PCP Emergency Medicine; Visit Provider Specialist
DX: R55 Syncope and collapse (principal); I10 Essential (primary) hypertension
CPT/HCPCS: 36415; 80048; 82533; 83735; 85025

== ENCOUNTER → 2021-11-03 15:13 | Outpatient (CLI) | payer MEDICARE, MEDICAID, SELFPAY ==
[2021-11-03 16:06] LABS: Anion Gap 8.3 mEq/L (5-15); Blood Urea Nitrogen 11 mg/dl (9-20); Calcium 8.8 mg/dl (8.4-10.2); Carbon Dioxide 26 mmol/L (22.0-30.0); Chloride 105 mmol/L (98-107); Estimated Glomerular Filt Rate 69 ml/min (>60); GFR (African American) 83 ML/MIN (>60); Glucose 106 mg/dl (74-100); Potassium 3.3 mmoL/L (3.5-5.1); Sodium 136 mmol/L (136-145)
== END ==
PROVIDERS: PCP Emergency Medicine; Visit Provider Physician Assistant
DX: R06.00 Dyspnea, unspecified (principal)
CPT/HCPCS: 36415; 80048

== ENCOUNTER → 2022-09-06 11:39 | Outpatient (CLI) | payer MEDICARE, MEDICAID, SELFPAY ==
[2022-09-06 12:19] LABS: Basophils % 0.4 % (0.1-2.0); Eosinophils # 0.2 K/mm3 (0.0-0.4); Eosinophils % 2.8 % (0.1-12.0); Hematocrit 47.6 % (42.0-52.0); Hemoglobin 15.5 g/dL (14.1-18.0); Lymphocytes % 30.2 % (10-50); Mean Corpuscular HGB Conc 32.5 g/dL (31.8-35.4); Mean Corpuscular Hemoglobin 30.7 pg (27.0-31.2); Mean Corpuscular Volume 94.5 fl (80-94); Mean Platelet Volume 8.7 fl (7.4-10.4); Monocytes # 0.4 K/mm3 (0.1-1.0); Monocytes % 5.9 % (1.7-9.3); Neutrophils % 60.7 % (37.0-80.0); Platelet Count 206 K/mm3 (142-424); Red Blood Count 5.04 M/mm3 (4.60-6.20); Red Cell Distribution Width 14.2 % (11.5-17.5); White Blood Count 6.5 K/mm3 (4.8-10.8)
[2022-09-06 12:49] LABS: Alanine Aminotransferase 32 U/L (12-78); Albumin Level 3.4 g/dl (3.5-5.0); Alkaline Phosphatase 102 U/L (38-126); Anion Gap 13.7 mEq/L (5-15); Aspartate Amino Transferase 33 U/L (17-59); Bilirubin,Indirect 0.5 mg/dL (0.0-0.9); Bilirubin,Total 0.5 mg/dl (0.2-1.3); Bilirubin,Unconjugated 0.6 mg/dL (0.0-1.1); Blood Urea Nitrogen 10 mg/dl (9-20); Calcium 8.8 mg/dl (8.4-10.2); Carbon Dioxide 29 mmol/L (22.0-30.0); Chloride 101 mmol/L (98-107); Chol/HDL Ratio 4.3 (1-3.5); Cholesterol 147 mg/dl (140-200); Estimated Glomerular Filt Rate 62 ml/min (>60); GFR (African American) 75 ML/MIN (>60); Glucose 116 mg/dl (74-100); HDL Cholesterol 34 mg/dl (40-60); Magnesium 1.8 mg/dl (1.6-2.3); Potassium 3.7 mmoL/L (3.5-5.1); Sodium 140 mmol/L (136-145); Total Protein,Serum 6.5 g/dl (6.3-8.2); Triglycerides 133 mg/dl (30-150); VLDL Cholesterol 27 mg/dL (0-40)
[2022-09-06 12:59] LABS: Direct LDL Cholesterol 91.55 mg/dL (100-129)
[2022-09-06 13:05] LABS: Free T4 (Free Thyroxine) 0.93 ng/dl (0.78-2.19)
[2022-09-06 13:19] LABS: Thyroid Stimulating Hormone 0.71 uIU/mL (0.465-4.68)
== END ==
PROVIDERS: PCP Emergency Medicine; Visit Provider Nurse Practitioner
DX: E78.5 Hyperlipidemia, unspecified (principal); I10 Essential (primary) hypertension; I25.10 Atherosclerotic heart disease of native coronary artery without angina pectoris; I51.89 Other ill-defined heart diseases; Z72.0 Tobacco use; Z86.73 Personal history of transient ischemic attack (TIA), and cerebral infarction without residual deficits
CPT/HCPCS: 36415; 80048; 80061; 80076; 83735; 84439; 84443; 85025

== ENCOUNTER 2023-05-11 18:56 | Outpatient (CLI) | payer MEDICARE, MEDICAID, SELFPAY ==
[2023-05-11 21:50] LABS: Amphetamine/Metha Screen,Urine Negative ng/ml (<1000); Barbiturates Screen,Urine Negative ng/ml (<200); Benzodiazepines Screen,Urine Negative ng/ml (<200); Cannabinoid Screen,Urine Negative ng/ml (<50); Cocaine Screen,Urine Negative ng/ml (<300); Methadone Screen,Urine Negative ng/ml (<300); Opiate Screen,Urine Negative ng/ml (<300); Phencyclidine Screen,Urine Negative ng/ml (<25)
== END 2023-05-11 23:59 ==
LOC: LAB.DROPOF 18:58
PROVIDERS: PCP Nurse Practitioner Family; Visit Provider Nurse Practitioner Family
DX: Z79.899 Other long term (current) drug therapy (principal)
CPT/HCPCS: 80307

== ENCOUNTER 2023-08-19 08:11 | Emergency (ER) | payer MEDICARE, MEDICAID, SELFPAY ==
[2023-08-19 08:20] VITALS: BP 137/90; PULSE 76; RESP 18; TEMP 36.6; O2SAT 96; BMI 25.8
--- NOTE | 2023-08-19 08:43 | EXP.UTC ---
Discharge Plan Disposition Patient Disposition: Home, Self-Care Condition: Good Prescriptions Prescriptions: New ondansetron 4 mg Tablet,Disintegrating 4 mg PO Q8H PRN (Reason: Nausea) Qty: 12 0RF No Action atorvastatin 80 mg tablet 80 mg PO DAILY Qty: 90 3RF amlodipine 10 mg tablet 10 mg PO DAILY Qty: 90 3RF isosorbide mononitrate 30 mg tablet extended release 24 hr 30 mg PO DAILY Qty: 90 3RF omeprazole 20 mg capsule,delayed release(DR/EC) See Rx Instructions .ROUTE .COMPLEX Qty: 90 3RF Dose Instruction: TAKE 1 CAPSULE BY MOUTH EVERY DAY FOR GERD Rx Instructions: TAKE 1 CAPSULE BY MOUTH EVERY DAY FOR GERD Linzess 72 mcg capsule See Rx Instructions .ROUTE .COMPLEX Qty: 90 0RF Dose Instruction: TAKE 1 CAPSULE BY MOUTH EVERY DAY Rx Instructions: TAKE 1 CAPSULE BY MOUTH EVERY DAY fluticasone furoate-vilanterol [Breo Ellipta] 100-25 mcg/dose blister with device See Rx Instructions .ROUTE .COMPLEX Qty: 60 2RF Dose Instruction: INHALE 1 DOSE BY MOUTH ONCE DAILY Rx Instructions: INHALE 1 DOSE BY MOUTH ONCE DAILY citalopram 20 mg tablet See Rx Instructions .ROUTE .COMPLEX Qty: 90 0RF Dose Instruction: TAKE ONE TABLET BY MOUTH EVERY DAY Rx Instructions: TAKE ONE TABLET BY MOUTH EVERY DAY aspirin 81 mg tablet,delayed release (DR/EC) See Rx Instructions .ROUTE .COMPLEX Qty: 90 0RF Dose Instruction: TAKE ONE TABLET BY MOUTH EVERY DAY WITH FOOD FOR BLOOD THINNER Rx Instructions: TAKE ONE TABLET BY MOUTH EVERY DAY WITH FOOD FOR BLOOD THINNER levetiracetam 500 mg tablet See Rx Instructions .ROUTE .COMPLEX Qty: 180 0RF Dose Instruction: TAKE 1 TABLET BY MOUTH TWICE DAILY Rx Instructions: TAKE 1 TABLET BY MOUTH TWICE DAILY ergocalciferol (vitamin D2) [Vitamin D2] 1,250 mcg (50,000 unit) capsule See Rx Instructions .ROUTE .COMPLEX Qty: 5 0RF Dose Instruction: TAKE 1 CAPSULE BY MOUTH ONCE A WEEK DIRECTED Rx Instructions: TAKE 1 CAPSULE BY MOUTH ONCE A WEEK DIRECTED Incruse Ellipta 62.5 mcg/actuation blister with device See Rx Instructions .ROUTE .COMPLEX Qty: 30 0RF Dose Instruction: USE 1 INHALATION BY MOUTH ONCE DAILY Rx Instructions: USE 1 INHALATION BY MOUTH ONCE DAILY clonazepam 0.5 mg tablet 0.5 mg PO BID 30 Days Qty: 60 4RF trazodone 100 mg tablet See Rx Instructions .ROUTE .COMPLEX Qty: 90 2RF Dose Instruction: TAKE ONE TABLET BY MOUTH AT BEDTIME Rx Instructions: TAKE ONE TABLET BY MOUTH AT BEDTIME albuterol sulfate 8.5 GM HFA aerosol inhaler See Rx Instructions .Route .COMPLEX Rx Instructions: INHALE 2 PUFFS BY MOUTH EVERY 4 TO 6 HOURS NEEDED FOR SHORTNESS OF BREATH OR WHEEZING Referrals Follow up/Referrals: Se Casas APRN [Primary Care Provider] - See instructions Activity Restrictions/Add. Instructions Additional Instructions/Restrictions: Drink plenty of fluids. Take tylenol for pain or fever. Take the zofran as directed if you have nausea/vomiting Follow up with your regular doctor. GO TO THE ER FOR ANY WORSENING SYMPTOMS Clinical Impressions Clinical Impression: Mild dehydration Instructions Patient Instructions: DI for Dehydration -- Adult Discharge ED Provider: Joel Hughes [facility] General Stated complaint: weak, diarrhea Mode of Arrival: Ambulatory Source of Information: Patient Limitations: No Limitations Time Seen by Provider: 08/19/23 08:43 Description of Symptoms (Recalled from Triage Doc. by RN): Pt has had a virus since last monday and stated he feels weak. HEENT Symptoms (Recalled from RN notes): Yes Resp Symptoms (Recalled from RN notes): No Skin Symptoms (Recalled from RN notes): No MS Symptoms (Recalled from RN notes): No Functional Status (Recalled from RN notes): n/a History of Present Illness Provider Complaint: He states that around 5 days ago he had around 24 hours of diarrhea and vomiting. Those symptoms have completely resolved. His physical therapist was at his house yesterday and he recommended that the patient come in to be checked for dehydration. The patient denies any complaints at this time. Related Data Home Medications Medication Instructions Recorded Confirmed albuterol sulfate 90 mcg/actuation See Rx Instructions .Route 09/17/21 08/19/23 aerosol inhaler .COMPLEX . Previous Rx's Medication Instructions Recorded amlodipine 10 mg tablet 10 mg PO DAILY #90 tabs 10/04/22 atorvastatin 80 mg tablet 80 mg PO DAILY #90 ea 10/04/22 isosorbide mononitrate 30 mg 30 mg PO DAILY #90 tabs 10/04/22 tablet,extended release 24 hr omeprazole 20 mg capsule,delayed See Rx Instructions .Route 10/04/22 release .COMPLEX #90 caps linaclotide 72 mcg capsule See Rx Instructions .Route 10/17/22 (Linzess) .COMPLEX #90 caps fluticasone furoate 100 See Rx Instructions .Route 01/04/23 mcg-vilanterol 25 mcg/dose .COMPLEX #60 ea inhalation powder (Breo Ellipta) aspirin 81 mg tablet,delayed See Rx Instructions .Route 07/31/23 release .COMPLEX #90 tabs citalopram 20 mg tablet See Rx Instructions .Route 07/31/23 .COMPLEX #90 tabs ergocalciferol (vitamin D2) 1,250 See Rx Instructions .Route 07/31/23 mcg (50,000 unit) capsule (Vitamin .COMPLEX #5 caps D2) levetiracetam 500 mg tablet See Rx Instructions .Route 07/31/23 .COMPLEX #180 tabs umeclidinium 62.5 mcg/actuation See Rx Instructions .Route 07/31/23 blister powder for inhalation .COMPLEX #30 ea (Incruse Ellipta) clonazepam 0.5 mg tablet 0.5 mg PO BID 30 days #60 tabs 08/01/23 trazodone 100 mg tablet See Rx Instructions .Route 08/01/23 .COMPLEX #90 tabs ondansetron 4 mg disintegrating 4 mg PO Q8H PRN Nausea #12 tabs 08/19/23 tablet Allergies Allergy/AdvReac Type Severity Reaction Status Date / Time No Known Allergies Allergy Verified 08/19/23 08:29 Worker's Comp Is this a Worker's Comp case?: No [facility] Disclaimer: The information contained in this section may have been updated after the patient was seen, as this information can be updated by other users. Medical History Diastolic dysfunction HLD (hyperlipidemia) Dyspnea History of stroke Essential hypertension Stroke Social History Smoking Status: Current every day smoker tobacco type: cigarettes packs per day: 2 second hand exposure: No alcohol intake: never substance use type: denies use current occupational status: unemployed Travel in the last 8 weeks: None household members: spouse housing: house current occupational exposures/hazards: No ROS Obtained: Yes All systems reviewed & no additional complaints except as documented Constitutional Constitutional: Denies chills and Denies fever(s) Eyes Eyes: Denies eye discharge ENT Ears, Nose, Mouth, and Throat: Denies dizziness, Denies otalgia and Denies sore throat Cardiovascular Cardiovascular: Denies chest pain Respiratory Respiratory: Denies shortness of breath, Denies chest congestion, Denies cough, Denies stridor and Denies wheezing Gastrointestinal Gastrointestingal: Denies nausea or vomiting Musculoskeletal Musculoskeletal: Reports system reviewed and no additional complaints, except as documented and Denies arthralgias Integumentary/Breasts Skin/Breast: Denies rash Neurologic Neurologic: Denies dizziness and Denies paresthesias Allergic/Immunologic Allergic/Immunologic: Denies wheezing Physical Exam General General appearance: alert and in no apparent distress Head Head exam: atraumatic, normocephalic and normal inspection Eye Eye exam: Present normal appearance, PERRL and EOMI ENT ENT exam: Present mucous membranes moist and normal external ear exam Expanded ENT Exam TM/Canal exam: Bilateral TM: erythema and bulging Nose exam: Absent sinus tenderness Mouth exam: Present normal external inspection; Absent drooling Teeth exam: Present normal inspection Throat exam: Present tonsillar erythema, tonsillomegaly and tonsillar exudate Neck Neck exam: Present normal inspection, full ROM and trachea midline; Absent tenderness, meningismus or lymphadenopathy Chest Chest inspection: Present normal inspection and symmetric chest wall rise; Absent tenderness Respiratory Respiratory exam: Present normal lung sounds bilaterally; Absent respiratory distress, wheezes or stridor Cardiovascular Cardiovascular exam: Present regular rate and normal rhythm; Absent systolic murmur or diastolic murmur Abdominal Exam Abdominal exam: Present soft and normal bowel sounds; Absent distention, tenderness, guarding, rebound or rigidity Extremities Exam Extremities exam: Present normal inspection and normal capillary refill; Absent calf tenderness Back Exam Back exam: Present normal inspection and full ROM; Absent tenderness, CVA tenderness (R) or CVA tenderness (L) Neurological Exam Neurological exam: Present alert, oriented X3 and CN II-XII intact Psychiatric Psychiatric exam: Present normal affect and normal mood Skin Skin exam: Present warm, dry, intact and normal color Medical Decision Making Medical Records Medical records reviewed: No I reviewed the patient's medical records. Jj Inquiry Pt receiving controlled substance: No Vital Signs: 08/19/23 08:20 Temperature 97.9 F Temperature Source Oral Pulse Rate [Right Radial] 76 Respiratory Rate 18 Blood Pressure [Right Arm] 137/90 Blood Pressure Mean [Right Arm] 105 Blood Pressure Source [Right Arm] Automatic Cuff Blood Pressure Position [Right Arm] Sitting 02 Sat by Pulse Oximetry 96 Oxygen Delivery Method Room Air
[2023-08-19 08:54] VITALS: BP 124/77; BP 131/77; PULSE 80; PULSE 89
[2023-08-19 09:02] VITALS: BP 137/90; PULSE 76; RESP 18; TEMP 36.6; O2SAT 96
--- NOTE | 2023-08-19 09:02 | PC.NURSE ---
Gave pt gatorade and check to see if they needed anything.
== END 2023-08-19 09:02 | disposition home or self-care (01) ==
PROVIDERS: Emergency Provider Nurse Practitioner Family; PCP Nurse Practitioner Family
DX: E86.0 Dehydration (principal); R19.7 Diarrhea, unspecified; R53.1 Weakness; F17.210 Nicotine dependence, cigarettes, uncomplicated; I10 Essential (primary) hypertension; E78.5 Hyperlipidemia, unspecified
CPT/HCPCS: 99204; 99212; G0463

== ENCOUNTER 2023-10-30 14:00 | Outpatient (RCR) | payer MEDICARE, MEDICAID, SELFPAY ==
--- NOTE | 2023-10-04 10:39 | HMH.PTOPEV ---
PT Outpatient Evaluation Rehab PT Outpatient Evaluation Start: 10/04/23 10:22 Freq: Status: Active Protocol: Document 10/04/23 10:22 SOSA (Rec: 10/04/23 10:38 SOSA Laptop) E-signed By Jonah Gerard, PT Outpatient Therapy Subjective History Subjective History Pt and pt caregiver report ' mini stroke' ~6 weeks ago, and 'major stroke 7 years ago that caused all this weakness on the right side.' Pt reports right ankle and foot provide the greatest limitation for walking and standing, reports no pain in the LE's, and reports no recent falls. Pt's caregiver reports physicians are unsure of the cause of ' all the strokes'. Pt reports he's been participating in HHPT as recently as 2 weeks ago, 'but they thought I needed to come here to do more stuff.' New diagnosis of cancer in past 12 No months? Chief Complaint Paresthesia,Weakness,Decreased Coordination Symptom Type Other Symptoms Relieved By Activity Symptoms Aggravated By Standing,Walking Prior Functional Limitations Housework,Standing,Walking, Stairs,Balance Current Functional Limitations Housework,Standing,Walking, Stairs,Balance Hip/Knee Eval Gait Observation General Gait Pattern Observation Ataxic Gait,Decrease Weight Bear (R),Decrease Stride Lngth (R) Assistive Device Assistive Devices Straight Cane MMT left Hip Flexion Strength Grade 5 Normal Hip Abduction Strength Grade 5 Normal Hip Adduction Strength Grade 5 Normal Hip Extension Strength Grade 5 Normal Knee Extension Strength Grade 5 Normal Knee Flexion Strength Grade 5 Normal right Hip Flexion Strength Grade 4- Good- Hip Abduction Strength Grade 4- Good- Hip Adduction Strength Grade 4 Good Hip Extension Strength Grade 4- Good- Knee Extension Strength Grade 4 Good Knee Flexion Strength Grade 4- Good- Ankle/Foot Eval ROM Ankle/Foot Dorsiflexion w/Knee Extended +19 Active Range Motion (degrees) Ankle/Foot Dorsiflexion w/Knee Extended +3 Passive Range (degrees) Ankle/Foot ROM Limitations Soft Tissue Tightness,Muscle Tone MMT Ankle Dorsiflexion Strength Grade 1 Trace Balance Eval Timed Up and Go Test 1. Is the Timed Up and Go test result > yes or = to 12 seconds? Tinetti Sitting Balance Sitting Balance Steady, safe Arising from Chair Ability to Arise Able, uses arms to help Attempts to Arise Arises on 1st attempt Standing Balance Immediate Standing Balance Steady with support Standing Balance Steady, wide stance Nudged Response Begins to fall Standing with Eyes Closed Unsteady Turning Step Pattern Turning 360 Degrees Discontinuous steps Stability Turning 360 Degrees Unsteady, grabs/staggers Sitting Down Sitting Down Uses arms or unsteady Gait and Step Initiation of Gait No hesitancy Right Foot Step Length Does pass stance foot Right Foot Step Height Does not clear floor Left Foot Step Length Does pass stance foot Left Foot Step Height Completely clears floor Step Description Step Symmetry Step length not equal Step Continuity Steps appear continuous Gait Description Path Description Mild/moderate deviation Trunk Description No sway but posturing Walking Stance Heels apart Scoring and Interpretation Tinetti Composite Score (points) 14 Outpatient Therapy Assessment Impairments Problems/Impairmments Impaired Range of Motion, Impaired Strength,Impaired Gait Pattern,Impaired Walking, Impaired Standing,Impaired Household Care,Impaired Stair Climbing,Impaired Balance, Impaired Tinnetti Score, Impaired TUG Time,Impaired Self Care/Self Management Prognosis Rehab Potential Fair Clinical Impression Consistent with Diagnosis Yes Short Term Goals Number of Weeks 4 Increase Range of Motion Yes: right AROM DF +5, PROM 0- 5 Increase Strength Yes: R ANKLE 3/5, R KNEE,HIP 4 /5 Increase Ability to Walk Yes: 10MIN Increase Ability to Stand Yes: 10MIN Improve Ability For Household Care Yes: 10MIN Increase Tinnetti Score Yes: 19-21 Decrease TUG Time Yes: 16-18 SEC W/SC Patient to be Ind w/ HEP Yes Mcfp Goals Number of Weeks 10-12 Increase Range of Motion Yes: RIGHT DF AROM 0, R DF PROM 0-10-15 Increase Strength Yes: RIGHT ANKLE 3+-4/5, R KNEE, HIP 4+-5/5 Improve Gait Pattern with Assistive Yes: WFL W/SC AND KAFO Device Increase Ability to Walk Yes: 15MIN Increase Ability to Stand Yes: 15MIN Improve Ability For Household Care Yes: 15MIN Improve Ability to Climb Stairs Yes: WFL W/HHAX1-2 Increase Tinnetti Score Yes: 24-26 Decrease TUG Time Yes: 12-14 SEC W/SC Patient to be Ind w/ Advanced HEP Yes Outpatient Therapy Plan of Care Treatment Plan May Include Therapeutic Exercise Including Home Yes Exercise Program Manual Therapy Techniques Yes Neuromuscular Re-education Yes Therapeutic Activities to Return to Yes Previous Functional/Work Level Gait Training Yes ADL/Self Care Education Yes Thermal Modalities Yes Electrical Stimulation Yes Ultrasound/Phonophoresis Yes Orthotics/Bracing/Splinting Yes Eval/Re-Eval Yes Frequency Times per week 2-3 Duration Number of Weeks 10-12 Addendums This patient is a candidate for social No or vocational rehab? Patient/Guardian verbally acknowledges Yes understanding of treatment program and consents to further treatment? Patient/Guardian verbally acknowledges Yes understanding of diagnosis, prognosis and goals for treatment? Eval Complexity PT Charges 56233 - High Complexity Shoulder/Elbow Eval Shoulder Objective Measurements Elbow Objective Measurements PHYSICIAN CERTIFICATION: I certify the specified therapy services for John Олег Chin are required, authorized, and reviewed every 30 days.
== END 2023-10-30 15:20 | disposition home or self-care (01) ==
LOC: PT 14:00
PROVIDERS: Visit Provider Nurse Practitioner Family
DX: I63.89 Other cerebral infarction (principal)
CPT/HCPCS: 97163; 97530

== ENCOUNTER 2023-10-30 15:00 | Outpatient (RCR) | payer MEDICARE, MEDICAID, SELFPAY ==
--- NOTE | 2023-10-04 11:27 | HMH.OTOPEV ---
OT Inpatient Evaluation Rehab OT Outpatient Eval Start: 10/04/23 10:51 Freq: Status: Active Protocol: Document 10/04/23 10:51 RMARSHALRm (Rec: 10/04/23 11:26 [facility] [id number] E-signed By Gloria Dowling, OT Outpatient Therapy Subjective History Subjective History Pt is a 58 year old male who reports to therapy for initial evaluation due to a history of strokes. Pt originally had his first stroke ~7 years ago resulting in R side deficits in both upper and lower extremity. Since this stroke he has had multiple TIAs (10+) . His most recent TIA was ~6 weeks ago. Pt's RUE remains significantly limited due to hemiplegia. Pt usually has his right UE in resting position in lap or at his side with shoulder internally rotated and elbow flexors shortened which has led to a loss of motion and contractures. Pt's hand is contracted into a fist and wrist is also contracted into extension. Therapist does not feel subluxation at right shoulder humeral head. Pt has significant spasticity when pt attempts to activity move the arm and at rest. Pt demonstrates with a flexor synergy pattern when he attempts to move right shoulder resulting in the following movement patters: external rotation and abduction of the shoulder (~90 degrees), flexion of the elbow, pronation of the forearm, and flexion of the wrist and fingers. As far as ADLs, pt is requring assistance with most ADLs such as bathing and dressing. Pt explains he has more difficulty with dressing and bathing his upper body due to limited use of UE's. Pt is able to transfer using a cane and cga/min assist. He has had a few falls at home. Reaching and coordination is difficult for him and he does rely on his with majority of activities. He is dependent on his for all IADLs. Therapist will address all deficits from previous strokes and improve strenght in LUE to hopefully improve quality of life and indepenence with ADLs/ transfers. Pt will engage in functional reaching activity while standing for ~3-5 minutes with minimal assistance in order to improve upper body ADLs. Pt will engage in functional reaching activity below waist level to address core balance, lower body ADLs, and decrease fall risk without LOB 3/5 trials. Pt will engage in mark- technique strategies for Upper body dressing with moderate assistance to increase independence with upper body ADL task. Pt to engage in a functional therapeutic task for ~10 minutes in 3/5 trials in order to increase endurance for functional ADLs. New diagnosis of cancer in past 12 No months? Chief Complaint Pain,Stiff,Paresthesia, Weakness,Decreased Cash Management Officer Strength Symptom Type Sharp,Numbness,Tingling Symptoms Relieved By Nothing Prior Functional Limitations Reaching,Lifting,Housework, Dressing,Driving,Sleeping, Recreation Activity Current Functional Limitations Reaching,Lifting,Housework, Dressing,Driving,Sleeping, Recreation Activity Symptom Description Intermittent Shoulder/Elbow Eval Shoulder Objective Measurements Shoulder MMT Right Shoulder Abduction Strength Grade 2- Poor- Shoulder Extension Strength Grade 2- Poor- Shoulder Flexion Strength Grade 2- Poor- Shoulder External Rotation Strength 2- Poor- Grade Shoulder Internal Rotation Strength 2- Poor- Grade Shoulder Strength Patient Testing Sitting Position Left Shoulder Abduction Strength Grade 4- Good- Shoulder Extension Strength Grade 4- Good- Shoulder Flexion Strength Grade 4- Good- Shoulder External Rotation Strength 4- Good- Grade Shoulder Internal Rotation Strength 4- Good- Grade Elbow Objective Measurements Elbow MMT Right Elbow Flexion Strength Grade 2- Poor- Elbow Extension Strength Grade 2- Poor- Supination Strength Grade 2- Poor- Pronation Strength Grade 2- Poor- Left Elbow Flexion Strength Grade 4- Good- Elbow Extension Strength Grade 4- Good- Supination Strength Grade 4- Good- Pronation Strength Grade 4- Good- Wrist/Hand Eval Wrist Manual Muscle Testing Right Wrist Extension Strength Grade 2- Poor- Wrist Flexion Strength Grade 2- Poor- Wrist Radial Deviation Strength Grade 2- Poor- Wrist Ulnar Deviation Strength Grade 2- Poor- Left Wrist Extension Strength Grade 4- Good- Wrist Flexion Strength Grade 4- Good- Wrist Radial Deviation Strength Grade 4- Good- Wrist Ulnar Deviation Strength Grade 4- Good- OT Outpatient Assessment Impairments Problems/Impairments Impaired Range of Motion, Impaired Strength,Impaired Endurance,Impaired Lifting, Impaired Dressing,Impaired Shower/Bathing,Impaired Household Care,Subjective C/O Pain Prognosis Rehab Potential Good Clinical Impression Consistent with Diagnosis Yes Short Term Goals Number of Weeks 4 Increase Strength Yes: RUE: 2/2+ throughout UE; LUE: 4/5 throughout UE Increase Endurance Yes: Pt will tolerate B/L UE exercises for ~20 minutes prior to rest. Patient to be Ind w/ HEP Yes: AAROM exercises Senior Project Accountant Goals Number of Weeks 8 Increase Strength Yes: RUE: 3-/5 throughout UE; LUE: 5/5 throughout UE Increase Endurance Yes: Pt will tolerate B/L UE exercises for ~30 minutes prior to rest. Patient to be Ind w/ Advanced HEP Yes: Strengthening exercises Outpatient Therapy Plan of Care Treatment Plan May Include Therapeutic Exercise Including Home Yes Exercise Program Manual Therapy Techniques Yes Neuromuscular Re-education Yes Therapeutic Activities to Return to Yes Previous Functional/Work Level Thermal Modalities Yes Electrical Stimulation Yes Ultrasound/Phonophoresis Yes Iontophoresis Yes Massage Yes Eval/Re-Eval Yes Frequency Times per week 2 Duration Number of Weeks 8 Addendums This patient is a candidate for social No or vocational rehab? Patient/Guardian verbally acknowledges Yes understanding of treatment program and consents to further treatment? Patient/Guardian verbally acknowledges Yes understanding of diagnosis, prognosis and goals for treatment? Eval Complexity OT Charge [id number] - Moderate Complexity PHYSICIAN CERTIFICATION: I certify the specified therapy services for John Chin are required, authorized, and reviewed every 30 days.
--- NOTE | 2023-10-30 15:39 | HMH.RHREAS ---
Rehab Reassessment Rehab OP Re-assessment Start: 10/04/23 10:51 Freq: Status: Active Protocol: Document 10/30/23 15:17 RMARSHALL (Rec: 10/30/23 15:39 RMARSHALL [id number]) E-signed By Gloria Dowling OT Rehab Re-assessment Subjective Subjective I think I can feel it working better. Objective Objective Notes Pt continues to be seen weekly in order to address RUE deficits from previous CVA. Pt engages in functional tasks along with strengthening, AROM, and AAROM exercises to RUE to increase use. Pt also engages in core strengthening, visual scanning, and functional transfers to increase overall independence with daily tasks. PROM manual stretching has also been provided at all joints in RUE: shoulder, elbow, wrist, and digits. At all joints he is passively stretched in all planes at each joint. Pt does receive [place] e-stim to right wrist to facilitate wrist extension for increased functional use of R hand/wrist . Assessment Progress Assessment Slower Than Expected Assessment Notes Pt has only attended two therapy sessions since initial evaluation. During these sessions, therapist has addressed several different functional activities to assist in increasing independence with daily activity. Pt engages in AROM, AAROM, and strengthening exercises at bilateral UE's with a significant focus on RUE to attempt to improve AROM . At this time, pt is still demonstrating flexor synergy pattern when he attempts to move RUE independently. Therapist provides PROM manual stretching at all joints of RUE to prevent contracture and skin breakdown in hopes of improved AROM as well. Pt has also been engaging in reaching below waist to simulate lower body dressing and strengthen core balance. Overall pt is able to tolerate exercises and activities well , but therapist has not seen improvement in functional use, purposeful movement, or strength in RUE. Patient goals met Pt will engage in functional reaching activity below waist level to address core balance, lower body ADLs, and decrease fall risk without LOB 3/5 trials. Pt to engage in a functional therapeutic task for ~10 minutes in 3/5 trials in order to increase endurance for functional ADLs. Goals Not Met See below Revised Goals ST-3 LT-3 Additional goals: Pt will engage in functional reaching activity while standing for ~3-5 minutes with minimal assistance in order to improve upper body ADLs. Pt will engage in mark- technique strategies for Upper body dressing with moderate assistance to increase independence with upper body ADL task. Pt to engage in a functional therapeutic task for ~15 minutes in 4/5 trials in order to increase endurance for functional ADLs. Pt will engage in functional reaching activity below waist level to address core balance, lower body ADLs, and decrease fall risk without LOB 4/5 trials. [ End ] Plan Plan Continue with OT plan of care at this time Frequency of Therapy 1-2x's a week Duration of therapy 4 more weeks Time and Billing Re-Eval Time 9 Re-Eval Billing Units 1 PHYSICIAN CERTIFICATION: I certify the specified therapy services for John Chin are required, authorized, and reviewed every 30 days.
== END 2023-10-30 16:00 | disposition home or self-care (01) ==
LOC: OT 15:00
PROVIDERS: Visit Provider Nurse Practitioner Family
DX: I63.9 Cerebral infarction, unspecified (principal)
CPT/HCPCS: 97014; 97110; 97140; 97164; 97166; 97530; G0283